=== PATIENT | male | born 1990 | race African-American/Black ===

== ENCOUNTER 2024-06-23 15:48 | Emergency (ER) | payer MEDICAID ==
[~2024-06-23] VITALS: Ht 198.1 cm; Wt 108.9 kg
[2024-06-23 15:55] VITALS: O2SAT 98
[2024-06-23] MEDS: ACETAMINOPHEN 500MG TABLET PO NR (16:37)
[2024-06-23] MEDS: IBUPROFEN 600MG TABLET PO NR (16:38)
[2024-06-23 17:45] VITALS: BP 138/87; PULSE 89; RESP 16; TEMP 98.6
== END 2024-06-23 17:57 | disposition home or self-care (01) ==
LOC: ER 15:48
DX: S83.92XA Sprain of unspecified site of left knee, initial encounter (principal); W01.0XXA Fall on same level from slipping, tripping and stumbling without subsequent striking against object, initial encounter; Y93.67 Activity, basketball; Y92.89 Other specified places as the place of occurrence of the external cause; Y99.8 Other external cause status
CPT/HCPCS: 73560; 99283